=== PATIENT | male | born 1995 | race Caucasian/White ===

== ENCOUNTER → 2020-01-27 13:38 | Outpatient (CLI) | payer BC, SELFPAY ==
--- NOTE | ~2020-01-27 | US_ITS ---
EXAMINATION: US thyroid DATE: 01/27/2020 14:00 INDICATION: Abnormal finding of blood chemistry. TECHNIQUE: Multiple ultrasound images of the thyroid were obtained. COMPARISON: None. FINDINGS: The right thyroid lobe measures 5.7 x 1.7 x 1.4 cm. The left thyroid lobe measures 5.5 x 1.3 x 1.6 c m. 7 mm wider than tall solid hypoechoic nodule with partially smooth, partially ill-defined margins and without echogenic foci. (TI-RADS 4, moderately suspicious , FNA if >=1.5 cm, annual followup is >1 cm). 3 mm nodule right thyroid lobe with similar features but including an echogenic focus. (TI-RA DS 5, highly suspicious , FNA if >=1.0 cm, annual followup is >0.5 cm). There is normal echotexture, echogenicity and vascular flow throughout the thyroid gland. IMPRESSION: 1. Subcentimeter left and right thyroid nodules which do not meet criteria for either biopsy or follo w-up. Recommend clinical followup with repeat imaging if there are changes on physical exam. Reviewed, dictated and finalized at location . S ARTIST IMPRESSION: 1. Subcentimeter left and right thyroid nodules which do not meet criteria for either biopsy or follow-up. Recommend clinical followup with repeat imaging if there are changes on physical exam.
== END ==
PROVIDERS: PCP Internal Medicine; Visit Provider Internal Medicine
DX: R79.89 Other specified abnormal findings of blood chemistry (principal); Z80.8 Family history of malignant neoplasm of other organs or systems; E04.2 Nontoxic multinodular goiter
CPT/HCPCS: 76536

== ENCOUNTER 2021-05-21 07:32 | Outpatient (CLI) | payer OTHER, SELFPAY ==
[2021-05-21 07:45] LABS: Basophils Percent Auto 0.4 % (0.2-1.2); Eosinophils Absolute Auto 0.3 K/mm3 (0-0.3); Eosinophils Percent Auto 5.3 % (0-4.4); Hematocrit 42.4 % (42.0-52.0); Hemoglobin 14.5 g/dL (14.0-18.0); Lymphocytes Absolute Auto 1.47 K/mm3 (0.9-3.2); Lymphocytes Percent Auto 31.3 % (18.3-44.2); Mean Corpuscular HGB Conc 34.2 g/dl (32-36); Mean Corpuscular Hemoglobin 29.6 pg (26-34); Mean Corpuscular Volume 86.5 fl (80-100); Mean Platelet Volume 9.8 fl (7.4-10.4); Monocytes Absolute Auto 0.3 K/mm3 (0.1-0.6); Monocytes Percent Auto 6.2 % (2.6-8.5); Neutrophils Absolute Auto 2.7 K/mm3 (1.3-6.7); Neutrophils Percent Auto 56.8 % (45.5-73.1); Platelet Count Result 195 k/mm3 (150-375); Red Cell Distribution Width 12.2 % (11.5-14.5); White Blood Count 4.7 K/mm3 (4.5-10.0)
[2021-05-21 07:56] LABS: Alanine Aminotransferase 20 U/L (4-50); Albumin Level 4.6 g/dL (3.5-5.1); Alkaline Phosphatase 62 U/L (38-126); Anion Gap 7 mmol/L (8-16); Aspartate Amino Transferase 37 U/L (17-59); Bilirubin,Total 0.6 mg/dL (0.2-1.3); Blood Urea Nitrogen 17 mg/dL (9-20); Carbon Dioxide 30 mmol/L (22-30); Chloride 103 mmol/L (98-107); Estimated Glomerular Filt Rate > 60; Glucose 78 mg/dL (65-110); Sodium 140 mmol/L (137-145)
[2021-05-21 08:43] LABS: Vitamin D 25 Hydroxy 52.7 ng/mL
== END 2021-05-21 07:33 | disposition home or self-care (01) ==
LOC: ANHLAB 07:36
PROVIDERS: PCP Internal Medicine; Visit Provider Internal Medicine
DX: E55.9 Vitamin D deficiency, unspecified (principal); L64.9 Androgenic alopecia, unspecified; Z00.00 Encounter for general adult medical examination without abnormal findings; Z80.8 Family history of malignant neoplasm of other organs or systems
CPT/HCPCS: 36415; 80053; 82306; 84443; 85025

== ENCOUNTER 2021-08-16 00:35 | Day surgery (SDC) | payer OTHER, SELFPAY ==
[2021-08-12 15:29] VITALS: BMI 29.9
--- NOTE | 2021-08-16 12:07 | WPDANESEPPF ---
Anes - Initial Pre Proc Eval Procedure: Operation Date: 08/16/21 13:15 Proposed Procedures p Colonoscopy - Bello Dillard MD s [facility] Hemorrhoid Treatment - Bello Dillard MD Date/Time: 08/16/21 12:07 Surgeon: Bello Dillard MD Pre Op Diagnosis: hemorrhoids, melena Patient Data Age: 26 Gender: M Height: 1.83 m Weight: 100 kg Allergies Allergy/AdvReac Type Severity Reaction Status Date / Time No Known Allergies Allergy Verified 08/12/21 15:27 Home Medications Medication Instructions Recorded Confirmed Type escitalopram oxalate 5 mg tablet 5 mg PO DAILY #30 tabs 06/25/21 08/12/21 Rx (Lexapro) Patient hx anesthesia problems: none Family hx anesthesia problems: none Results Review: All pre-operative results and documents have been reviewed as part of the pre-operative evaluation. [facility] Past Medical History Medical History (Updated 08/05/21 @ 13:51 by Bello Dillard MD) Blood in stool Social History Social History Smoking status: Never smoker Second hand tobacco smoke exposure: No Alcohol intake: never Substance use: never Substance use type: does not use Living arrangements: with family Spiritual care concerns: No Anes - Eval Final PreProcedure Day of Procedure 08/16/21 12:07 Patient weight: overweight Heart: regular rate and rhythm Lungs: clear to auscultation and normal air movement Airway: Mallampati scale class II Neurological: alert and oriented Last oral intake: >/= 8 hours ASA classification: II Emergent: no Anesthetic plan: proceed Anesthesia type and monitoring: general GIVS Results Review: All pre-operative results and documents have been reviewed as part of the pre-operative evaluation. Informed Consent: The patient's anesthetic plan and its attendant risks and benefits were discussed with the patient/family/POA. Questions were solicited and answers provided to the satisfaction of the patient/family/POA.
[2021-08-16 12:12] VITALS: BP 126/79; PULSE 99; RESP 18; TEMP 36.4; O2SAT 99
[2021-08-16] MEDS: LACTATED RINGERS 1,000 ML 150 ML IV CONT (12:23)
--- NOTE | 2021-08-16 12:34 | WPDHPUPDATE1 ---
History and Physical Update Update Date/Time: 08/16/21 12:34 History and Physical has been reviewed, including an updated exam of the patient. There are NO changes in the patient's condition. Risks, benefits, and alternatives have been discussed and questions answered. Patient agrees to proceed with procedure.
[2021-08-16 12:54] VITALS: BP 86/47; PULSE 67; RESP 18; O2SAT 97
--- NOTE | 2021-08-16 12:55 | W.PM.PROC2 ---
Procedure Note - Detailed Date of Procedure 08/16/21 Pre-op Diagnosis hemorrhoids Post-op Diagnosis Same Procedure Performed [facility] Surgeon Bello Dillard MD Indications same Findings found small internal hemorrhoid, no bleeding, no fissure. Description of Procedure I advanced [facility] probe through anoscope, hemorrhoid treated 1.5 seconds x5
[2021-08-16 13:04] VITALS: BP 94/48; PULSE 73; RESP 18; O2SAT 99
[2021-08-16 13:14] VITALS: BP 120/70; PULSE 65; RESP 18; O2SAT 99
== END 2021-08-16 13:22 | disposition home or self-care (01) ==
PROVIDERS: PCP Internal Medicine; Visit Provider Internal Medicine Gastroenterology
PROC: 0DJD8ZZ Inspection of Lower Intestinal Tract, Via Natural or Artificial Opening Endoscopic (ICD-10-PCS; CPT 45378; principal; 2021-08-16 13:15)
PROC: (CPT 46930; 2021-08-16 13:15)
DX: K64.8 Other hemorrhoids (principal); K63.5 Polyp of colon; K92.1 Melena
CPT/HCPCS: 46930; 45385; 88305; J2704; J7120

== ENCOUNTER 2021-10-05 11:54 | Outpatient (CLI) | payer OTHER, SELFPAY | END 2021-10-05 11:55 | disposition home or self-care (01) | LOC: ANHGOSHLAB 11:55 | PROVIDERS: PCP Internal Medicine; Visit Provider Internal Medicine | DX: Z23 Encounter for immunization (principal) | CPT/HCPCS: 36415; 86787 ==